=== PATIENT | female | born 1970 | race Caucasian/White ===

== ENCOUNTER 2018-01-21 12:00 | Emergency (ER) | payer SELFPAY ==
[~2018-01-21] VITALS: Ht 160 cm; Wt 133.8 kg
[2018-01-21] MEDS ORDERED: SYNTHROID150 MCG PO (12:17)
== END 2018-01-21 12:18 | disposition home or self-care (01) ==
LOC: ED 12:00
DX: S91.114A Laceration without foreign body of right lesser toe(s) without damage to nail, initial encounter (principal); W26.0XXA Contact with knife, initial encounter